=== PATIENT | male | born 2000 | race Caucasian/White ===

== ENCOUNTER 2023-05-22 18:03 | Emergency (ER) | payer OTHER ==
[2023-05-22 18:16] VITALS: BP 124/68; PULSE 82; RESP 16; TEMP 98.4; BMI 27.8
== END 2023-05-22 19:32 | disposition home or self-care (01) ==
LOC: JERFT 18:03 → JER 18:03 → JERFT 19:32
DX: Z48.02 Encounter for removal of sutures (principal)
CPT/HCPCS: 99282-25